=== PATIENT | female | born 1935 | race Caucasian/White ===

== ENCOUNTER 2016-12-03 08:48 | Day surgery (SDC) | payer MEDICARE, BC ==
[2016-11-30 11:55] VITALS: BMI 26.9
--- NOTE | 2016-12-03 08:12 | P.GSHP ---
History of Present Illness H&P Date: 12/03/16 Chief Complaint: Malignant melanoma of chest wall This 81-year-old female who presents today for wide local excision of a malignant melanoma chest wall. The patient had a previous excisional biopsy. The margin was involved. The patient was out of town after her pathology was received. She was visiting family in [place]. The patient received presented for follow-up. The pathology was discussed with the patient and she presents today for wide local excision of her chest wall excision site. 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, melanoma, frequent nighttime urination History of Any Multi-Drug Resistant Organisms: None Reported Past Surgical History: Appendectomy Additional Past Surgical History / Comment(s): D&C x 3, skin cancer(melanoma) Past Anesthesia/Blood Transfusion Reactions: No Reported Reaction Past Psychological History: No Psychological Hx Reported, Anxiety Additional Psychological History / Comment(s): takes xanax occasionally Smoking Status: Former smoker Past Alcohol Use History: None Reported, Rare Additional Past Alcohol Use History / Comment(s): quit smoking 30 yrs, smoked for 20 yrs-< 1 PPD Past Drug Use History: None Reported - Past Family History Father Family Medical History: Cancer Medications and Allergies Home Medications Medication Instructions Recorded Confirmed Type Atorvastatin [Lipitor] 20 mg PO HS 05/19/14 11/30/16 History Clopidogrel [Plavix] 75 mg PO DAILY 05/19/14 11/30/16 History Enalapril [Vasotec] 20 mg PO QAM 05/19/14 11/30/16 History Metoprolol Tartrate [Lopressor] 50 mg PO BID 05/19/14 11/30/16 History ALPRAZolam [Xanax] 0.125 mg PO DIRECTED PRN 09/25/16 11/30/16 History Vit C/E/Zn/Coppr/Lutein/Zeaxan 1 each PO BID 09/25/16 11/30/16 History [Preservision Areds 2 Softgel] Allergies Allergy/AdvReac Type Severity Reaction Status Date / Time No Known Allergies Allergy Verified 11/30/16 11:38 Surgical - Exam - General well developed, no distress - Eyes PERRL - ENT normal pinna - Neck no masses - Respiratory normal expansion - Cardiovascular Rhythm: regular - Abdomen Abdomen: soft - Integumentary Chest wall malignant melanoma incision site located over middle of chest. there is no evidence of recurrent melanoma. Assessment and Plan Plan: Malignant melanoma of chest wall with previous excision and positive margin. Patient will undergo wide local excision of her excisional biopsy site.
[~2016-12-03 08:48] MED LIST: DEXAMETHASONE SOD PHOSPHATE 10 MG/ML 1 ML VIAL IV ONE; HEPARIN SODIUM,PORCINE 5,000 UNIT/ML 1 ML VIAL SQ ONE; HYDROmorphone 1 MG/ML 1 ML SYRINGE IVP PRN; LACTATED RINGERS 1,000 ML IV SCH; MIDAZOLAM 2 MG/2 ML VIAL IV PRN; ONDANSETRON 4 MG/2 ML VIAL IVP ONE; Pre Op ABX Message 1 EACH MISC MISCELLANE ONE
[2016-12-03 09:27] VITALS: TEMP 97.8
[2016-12-03] MEDS ORDERED: LIDOCAINE 1% 20 ML VIAL (10MG/ML) FOR IV START INTRADERMA ONE (09:30)
[2016-12-03] MEDS ORDERED: hydrALAZINE HCL 20 MG/ML 1 ML VIAL IV ONE (10:25)
[2016-12-03] MEDS ORDERED: PROPOFOL 10 MG/ML 20 ML VIAL IV ONE (10:30)
[2016-12-03] MEDS ORDERED: fentaNYL (PF) 50 MCG/ML 2 ML AMP ONE (10:30)
[2016-12-03] MEDS ORDERED: LIDOCAINE 1% INJ 10MG/ML (20 ML MDV) ONE (10:30)
[2016-12-03] MEDS ORDERED: MIDAZOLAM 2 MG/2 ML VIAL ONE (10:30)
[2016-12-03] MEDS ORDERED: BUPIVACAIN-EPI 0.25%-1:200,000 30 ML VIAL SQ ONE ×2 (10:43→10:45)
[2016-12-03] MEDS ORDERED: SODIUM CHLORIDE 0.9% 100 ML with ceFAZolin 1,000 MG IV ONE ×2 (10:48)
--- NOTE | 2016-12-03 11:02 | P.OP ---
Date of Procedure: 12/03/16 Preoperative Diagnosis: Melanoma chest wall Postoperative Diagnosis: Melanoma chest wall Procedure(s) Performed: Wide local reexcision of melanoma chest wall Anesthesia: MAC Surgeon: Jamir Chin Estimated Blood Loss (ml): 5 Pathology: other (Chest wall melanoma) Condition: stable Description of Procedure: Patient's placed the operative table in the supine position. She received IV sedation. Her chest wall was prepped and draped usual fashion. The patient had a previous melanoma excision over her sternum. The area was anesthetized 1 % local Xylocaine. Using a 15 blade the skin was incised in elliptical fashion. And then using electrocautery the subcu tissues were divided. The specimen was marked with a short suture on the left side and and long suture on the superior side. The deep layer was closed 3-0 Vicryl. The skin was closed with running 4-0 nylon suture. Patient tolerated the procedure well and she will was sent to recovery in stable condition.
[2016-12-03 11:25] VITALS: BP 146/64; PULSE 78; RESP 16
--- NOTE | 2016-12-07 23:43 | CDI ---
In order to properly code and bill for this encounter, more information is needed about the procedure. I have 2 questions: 1. What is the size of the excised melanoma lesion? 2. What is the size of the closure/repair? Please answer via an addendum to the Operative Note. Thank you! Bhumi Moody, the excised melanoma was 2 cm in diameter. The closure, repair was approximately 10 cm in length. The specimen measured approximately 3 x 7 cm MTDD
--- NOTE | 2017-01-07 09:26 | OP ---
: DATE OF SERVICE: 12/03/2016 ADDENDUM: Query regarding procedure: The excised melanoma was 2 cm in diameter. The closure repair was approximately 10 cm in length. Specimen measured approximated 3 x 7 cm.
== END 2016-12-03 11:47 | disposition home or self-care (01) ==
LOC: OR 08:48
PROVIDERS: ATTEND Surgery
DX: C43.59 Malignant melanoma of other part of trunk (principal); L57.8 Other skin changes due to chronic exposure to nonionizing radiation; E78.5 Hyperlipidemia, unspecified; I10 Essential (primary) hypertension; F41.9 Anxiety disorder, unspecified; I69.398 Other sequelae of cerebral infarction; H53.8 Other visual disturbances; Z79.02 Long term (current) use of antithrombotics/antiplatelets; Z79.899 Other long term (current) drug therapy; Z87.891 Personal history of nicotine dependence
CPT/HCPCS: 11606; 12034; 88305; J2250; J0360; J1644; J1100; J2405; J0690; J2001; J3010; J2704

== ENCOUNTER → 2020-12-03 | Outpatient (CLI) | payer MEDICARE, BC ==
--- NOTE | 2020-12-03 10:45 | MR ---
EXAMINATION TYPE: MR brain wo/w con DATE OF EXAM: 12/03/2020 COMPARISON: CT brain 09/26/2013 HISTORY: Confustion, memory loss TECHNIQUE: Multiplanar, multisequence images of the brain and brainstem is performed without and with IV contras t, utilizing 5 mL intravenous Gadavist . FINDINGS: Diffusion weighted images demonstrate no evidence of a recent infarct or other diffusion ab normality. There is abnormal signal involving the occipital lobe bilaterally. Moderate to severe gen eralized degenerative change noted using focal areas of abnormal signal seen throughout the white mat ter extensive ischemic white matter change. No midline shift or mass effect. No area of abnormal sign al involving the basal ganglia suggestive of remote lacunar infarct. Faint areas of abnormal signal p ons suggestive of remote ischemia. Midline structures demonstrate normal morphology. The craniocervical junction appears within normal limits. Post contrast images demonstrate a 3 mm area of enhancement adjacent to the frontal horn rig ht lateral ventricle right. The dural venous sinuses appear patent. The visualized sinuses demonstrat e nasal septal deviation changes of mild sinusitis and the globes are intact. There is a 5 mm area of enhancement adjacent to the parieto-occipital junction which appears extra-axial along the posterior margin of the interhemispheric fissure best noted on axial image 19. IMPRESSION: 1. Extensive degenerative and remote ischemic change . 2. There is a 3 mm area of enhancement adjacent to the frontal horn of the right lateral ventricle to o small to characterize. Although this could be vascular, tiny intracranial lesion not entirely exclu ded but felt less likely. Recommend short-term follow-up 3 month MRI to confirm stability. 3. 5 mm extra-axial enhancement along the posterior margin of the interhemispheric fissure paracentra l to the right facet noted axial image 19. Small meningioma most likely etiology with no significant mass effect.
== END | disposition home or self-care (01) ==
LOC: RADMRIMAIN 09:28
PROVIDERS: ATTEND Psychiatry & Neurology Neurology
DX: I25.9 Chronic ischemic heart disease, unspecified (principal); I67.9 Cerebrovascular disease, unspecified
CPT/HCPCS: 70553; A9585

== ENCOUNTER → 2021-03-12 | Outpatient (CLI) | payer MEDICARE, BC ==
--- NOTE | 2021-03-13 19:23 | MR ---
EXAMINATION TYPE: MR brain wo/w con DATE OF EXAM: 03/12/2021 COMPARISON: 12/03/2020 HISTORY: 3 month f/u, abnormal MRI, memory loss CONTRAST: Performed utilizing 5 mL intravenous Gadavist gadolinium contrast. TECHNIQUE: Multiplanar, multiecho imaging on a 3.0 Naila magnet is performed through the brain. Stud y is performed within 24 hours of arrival to the hospital. The craniovertebral junction is normal. The pituitary is normal. Diffusion-weighted imaging is performed. No abnormal hyperintensity is present to suggest an acute i ntracranial infarct or acute ischemic change. Hypointensity is through the left occipital lobe and within the inferior lateral right cerebellum, th cecilia areas are hyperintense on T2 weighted sequences. There is hyperintensity along the margins on the inversion recovery weighted sequences compatible with infarct. There is multiple additional patchy t o confluent periventricular white matter hyperintensity on the inversion recovery and T2-weighted seq uences compatible with microvascular ischemic change. Some changes also present within the brainstem. A punctate area of enhancement within the right caudate head is not present on the current examinatio n. No suspicious area of enhancement is evident. Ventricles and sulci are prominent for the patient age. Previous tiny meningioma along the posterior right falx near the sagittal sinus is stable. IMPRESSIONS: 1. No suspicious acute changes pre and postcontrast MRI. 2. Patchy to confluent chronic appearing periventricular white matter ischemic changes. 3. 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 4. Previous right caudate head enhancement no longer present. 5. Small posterior enhancement along the right falx likely a stable meningioma
== END | disposition home or self-care (01) ==
LOC: RADMRIMAIN 11:17
PROVIDERS: ATTEND Psychiatry & Neurology Neurology
DX: I67.82 Cerebral ischemia (principal); I63.9 Cerebral infarction, unspecified
CPT/HCPCS: 70553; A9585